=== PATIENT | male | born 1945 | race Caucasian/White ===

== ENCOUNTER 2017-11-14 20:15 | Emergency (ER) | payer BC, MEDICARE ==
[2017-11-14] MEDS ORDERED: Aspirin 81 MG Tab.Chew PO ONE (20:20)
[2017-11-14 21:03] VITALS: BP 141/79
--- NOTE | 2017-11-15 00:50 | ER ---
HISTORY OF PRESENT ILLNESS: A 72-year-old male here who comes in with his with complaints of chest pain and epigastric pain. It has been bothering him on and off for several days. The patient states that eating seems to make his symptoms worse. The pain has never been severe. He did try taking Tums today and the pain went away. The patient has been monitoring his blood pressure, and he has been getting elevated readings as well. He does have history of coronary artery disease. He has had 3 stents, the last one was about 2 years ago. The patient denies any falls or injuries. He has not been running a fever. He denies any GI symptoms such as nausea, vomiting, or diarrhea. OBJECTIVE: GENERAL APPEARANCE: The patient is awake and alert, in no obvious distress. VITAL SIGNS: Reviewed. Initial blood pressure is 213/95. He is afebrile. Pulse is 72, O2 sats 100%. HEENT: On physical exam; oral mucous membranes moist. Tonsils not enlarged or injected. Pharynx not inflamed. NECK: Supple. LUNGS: Clear. CARDIAC: Heart sounds distinct. S1, S2 present. Regular rate. No murmurs. ABDOMEN: Soft and nontender. SKIN: Warm and dry. The patient denies any pain at this time. Within 15 minutes, the blood pressure is rechecked with significantly better reading of 163/83. We checked it again 8 minutes later, and it was then 134/75. EKG was obtained and is normal sinus rhythm. LAB AND X-RAY: Chest x-ray is unremarkable. Labs include a CBC, CMP, PT/INR, and they are all normal. Troponin is also normal at 0.025. DIAGNOSIS: Gastritis. TREATMENT PLAN: The patient was given Nexium 40 mg p.o. here in the emergency room, and he was given samples to last him 6 more days. He is to take his dose of Nexium starting tomorrow before his evening meal, which is his biggest meal of the day. He is to refrain from greasy, spicy, or fatty foods, and I want him to follow up next week in the clinic with his primary care provider, Dr. Rizvi. Followup should be sooner of course if his symptoms reoccur or get worse. CRS/MODL /[id number]
--- NOTE | 2017-11-15 09:51 | CR ---
DATE OF SERVICE: 11/14/17 CLINICAL DATA: chest pain AP PORTABLE CHEST: Comparison is made to a prior exam dated 11/08/15. The patient has taken a poor inspiration. The heart size is within normal limits. The aorta is ectatic. The lungs are clear. No pneumothorax. No pleural effusions. No areas of consolidation. No evidence of acute intrathoracic disease. [id number] [facility]
== END 2017-11-14 21:50 | disposition home or self-care (01) ==
LOC: LB.ED 20:15
DX: K29.70 Gastritis, unspecified, without bleeding (principal); I25.10 Atherosclerotic heart disease of native coronary artery without angina pectoris; Z95.5 Presence of coronary angioplasty implant and graft
CPT/HCPCS: 36415; 71045; 80053; 84484; 85025; 85610; 93005; 99284; 99285-25

== ENCOUNTER 2018-10-16 10:25 | Day surgery (SDC) | payer BC, MEDICARE ==
[~2018-10-16 10:25] MED LIST: Metoclopramide 10 MG/2 ML SDV IV PRN; Sodium Chloride 0.9% 1,000 ML IV SCH
[2018-10-16] MEDS ORDERED: Atropine 0.4 MG/ML SDV ONE (12:15)
[2018-10-16] MEDS ORDERED: Midazolam 1 MG/ML 5 ML SDV ONE (12:15)
[2018-10-16] MEDS ORDERED: Propofol 1,000 MG/100 ML SDV ONE (12:15)
[2018-10-16 14:44] VITALS: BP 165/91
--- NOTE | 2018-10-16 18:07 | OR ---
DATE OF OPERATION: 10/16/2018 PREOPERATIVE DIAGNOSIS: History of colon polyps. POSTOPERATIVE DIAGNOSIS: History of colon polyps. PROCEDURE: Colonoscopy. ANESTHESIA: MAC. ESTIMATED BLOOD LOSS: None. COMPLICATIONS: None. INDICATION FOR THE PROCEDURE: The patient is a 73-year-old male who 4 years ago had a colonoscopy, was found to have a couple of polyps, which were removed. The patient denies any change in bowel habits since that time. He is here today for surveillance colonoscopy. DESCRIPTION OF PROCEDURE: Informed consent was obtained from the patient. The patient was taken to the operating room and placed on the table in left lateral decubitus position. Monitored anesthesia care was administered. A digital rectal exam was performed and was normal. Colonoscope then advanced through the anus directed toward the cecum. Cecum was reached and identified by appendiceal orifice and ileocecal valve. Colonoscope was then slowly withdrawn. No masses. No polyps. No areas of ischemia or inflammation. The patient did have moderate sigmoid diverticulosis. Retroflexion performed in the rectum was also otherwise unremarkable. Colonoscope then withdrawn. FINDINGS: Moderate sigmoid diverticulosis. RECOMMENDATIONS: We would recommend increased water and high-fiber diet for the diverticula. Due to personal history of colon polyps, we would recommend repeat surveillance colonoscopy in 5 years. VERNON /[id number]
== END 2018-10-16 14:10 | disposition home or self-care (01) ==
LOC: LB.SDS 10:25
PROVIDERS: ATTEND Surgery
DX: Z12.11 Encounter for screening for malignant neoplasm of colon (principal); K57.30 Diverticulosis of large intestine without perforation or abscess without bleeding; Z86.010 Personal history of colon polyps; Z98.890 Other specified postprocedural states
CPT/HCPCS: 45378; J7030; J0461; J2250; J2704

== ENCOUNTER 2021-08-10 09:35 | Emergency (ER) | payer MEDICARE, BC ==
--- NOTE | 2021-08-10 11:03 | EDM.PDOC ---
ED HPI GENERAL MEDICAL PROBLEM - General Stated Complaint: LUMP ON LEFT SHOULDER Time Seen by Provider: 08/10/21 10:20 Source of Information: Reports: Patient, Family, RN Notes Reviewed History Limitations: Reports: No Limitations - History of Present Illness INITIAL COMMENTS - FREE TEXT/NARRATIVE: This patient presents to the emergency department of left shoulder pain. He states that he has noticed some pain In an area with all "lump on it for the past couple of weeks. It does not ache however he is quite uncomfortable when it is touched. The area he indicates is painful is overlying the AC joint. He has not had any trauma or falls, however, he states he has been lifting weights with more regularity. He denies any numbness or tingling. Left Shoulder Pain Score (Numeric/FACES): 3 - Related Data Allergies Allergy/AdvReac Type Severity Reaction Status Date / Time No Known Allergies Allergy Verified 08/10/21 10:12 Home Meds: Home Meds Aspirin [Adult Low Dose Aspirin EC] 81 mg PO BEDTIME 07/06/13 [History] Levothyroxine Sodium [Synthroid] 75 mcg PO DAILY 07/06/13 [History] Metoprolol Succinate [Toprol XL] 50 mg PO DAILY 07/06/13 [History] Simvastatin 20 mg PO DAILY 07/06/13 [History] Clopidogrel Bisulfate [Clopidogrel] 75 mg PO DAILY 11/14/17 [History] Past Medical History HEENT History: Reports: Cataract, Impaired Vision Cardiovascular History: Reports: High Cholesterol, Hypertension, CO, Stents Other Cardiovascular History: 2010 in [place] Gastrointestinal History: Reports: GERD Endocrine/Metabolic History: Reports: Hypothyroidism - Infectious Disease History Infectious Disease History: Reports: Chicken Pox - Past Surgical History HEENT Surgical History: Reports: None Cardiovascular Surgical History: Reports: Coronary Artery Stent GI Surgical History: Reports: None Social & Family History - Family History Family Medical History: No Pertinent Family History - Caffeine Use Caffeine Use: Reports: None - Recreational Drug Use Recreational Drug Use: No Review of Systems - Review of Systems Review Of Systems: Comprehensive ROS is negative, except as noted in HPI. ED EXAM, GENERAL - Physical Exam Exam: See Below Exam Limited By: No Limitations General Appearance: Alert, No Apparent Distress (The ER) Eye Exam: Bilateral Eye: PERRL Ears: Normal External Exam Nose: Normal Inspection (Impression and no) Head: Atraumatic, Normocephalic Neck: Normal Inspection, Full Range of Motion Respiratory/Chest: No Respiratory Distress, No Accessory Muscle Use Back Exam: Normal Inspection Extremities: Normal Inspection, Normal Range of Motion, Other (Tenderness over left AC joint. No deformity, discoloration, swelling noted. Distal CMS intact.) Skin Exam: Warm, Dry, Intact Course - Vital Signs Last Recorded V/S: Last Vital Signs Temp 35.5 C L 08/10/21 10:14 Pulse 56 L 08/10/21 11:07 Resp 16 08/10/21 11:07 BP 180/89 H 08/10/21 11:07 Pulse Ox 96 08/10/21 11:07 - Re-Assessments/Exams Free Text/Narrative Re-Assessment/Exam: 08/11/21 06:29 This patient presents to the emergency department for evaluation of left shoulder pain. History and clinical findings are most consistent with a muscular low skeletal injury. X-ray obtained is negative for fracture or other acute bony abnormalities. Exam reveals no joint instability, neurovascular injury, no evidence of changes. History and exam are not consistent with a septic joint. Given his age and activity level this also could be some arthritis. Plan is for limited weight lifting, pain control with ibuprofen or Tylenol, ice and rest. I do not feel that opioid medications are required for his pain. He will follow-up with his primary care provider in 2 weeks if he is not better, sooner if he is worse in any way. Continued pain he will require mo re advanced imaging and care. Patient was stable at the time of discharge. Departure - Departure Time of Disposition: 11:00 Disposition: Home, Self-Care 01 Condition: Good Clinical Impression: Shoulder pain - Discharge Information *PRESCRIPTION DRUG MONITORING PROGRAM REVIEWED*: Not Applicable *COPY OF PRESCRIPTION DRUG MONITORING REPORT IN PATIENT TOM: Not Applicable Instructions: Shoulder Pain, [id number] Referrals: Kenn Rizvi MD [Primary Care Provider] - Forms: ED Department Discharge Sepsis Event Note (ED) - Evaluation Sepsis Screening Result: No Definite Risk
[2021-08-10 11:08] VITALS: BP 180/89; PULSE 56
--- NOTE | 2021-08-10 18:42 | CR ---
CLINICAL DATA: Pain. LEFT SHOULDER, 10 AUGUST 2021: No priors. There are mild osteoarthritic changes of the AC and glenohumeral joints. No acute abnormalities. No other significant findings. Job: [id number] MTDD
== END 2021-08-10 11:19 | disposition home or self-care (01) ==
LOC: LB.ED 09:35
DX: M25.512 Pain in left shoulder (principal); E78.00 Pure hypercholesterolemia, unspecified; I10 Essential (primary) hypertension; I25.2 Old myocardial infarction; E03.9 Hypothyroidism, unspecified; Z79.82 Long term (current) use of aspirin; Z79.02 Long term (current) use of antithrombotics/antiplatelets; Z79.899 Other long term (current) drug therapy
CPT/HCPCS: 73030-LT; 99283-25

== ENCOUNTER 2024-05-02 09:37 | Emergency (ER) | payer MEDICARE, BC ==
[2024-05-02 09:48] VITALS: BP 160/93; PULSE 60
[2024-05-02] MEDS: Amoxicillin/Clavulanate K 875-125 MG Tab PO ONE (10:10)
[2024-05-02] MEDS: Diphtheria,Pertussis(Acell),Tetanus Vaccine 0.5 ML Syringe IM ONE (10:43)
[2024-05-02] MEDS: Bacitracin Oint 1 GM U/D Packet TOP ONE (10:44)
[2024-05-02] MEDS ORDERED: Rabies Immune Globulin/PF (HyperRAB) 300 UNIT/ML 5 ML SDV IM ONE (11:11)
[2024-05-02] MEDS: RABIES IMMUNE GLOBULIN IM ONE (11:20)
[2024-05-02] MEDS: [UNRECOGNIZED DRUG - OTHER] IM ONE (11:20)
[2024-05-02] MEDS ORDERED: Amoxicillin/Clavulanate K 875-125 MG Tab ONE (11:30)
[2024-05-02] MEDS: Rabies Vaccine (Avian) 2.5 Unit Inj Kit IM ONE (11:48)
== END 2024-05-02 11:42 | disposition home or self-care (01) ==
LOC: LB.ED 09:37
DX: S61.551A Open bite of right wrist, initial encounter (principal); I10 Essential (primary) hypertension; Z23 Encounter for immunization; K21.9 Gastro-esophageal reflux disease without esophagitis; E03.9 Hypothyroidism, unspecified; Z87.891 Personal history of nicotine dependence; Z79.899 Other long term (current) drug therapy; Z79.82 Long term (current) use of aspirin; W54.0XXA Bitten by dog, initial encounter
CPT/HCPCS: 90375; 90471; 90675; 90715; 96372; 99283; A9270

== ENCOUNTER 2024-07-05 08:50 | Emergency (ER) | payer MEDICARE, BC ==
[2024-07-05 09:00] VITALS: PULSE 63
[2024-07-05] MEDS ORDERED: Amoxicillin 500 MG Cap ONE (09:00)
[2024-07-05 10:46] VITALS: BP 199/92
== END 2024-07-05 09:10 | disposition home or self-care (01) ==
LOC: LB.ED 08:50
DX: K08.89 Other specified disorders of teeth and supporting structures (principal); I10 Essential (primary) hypertension; K21.9 Gastro-esophageal reflux disease without esophagitis; E03.9 Hypothyroidism, unspecified; Z95.5 Presence of coronary angioplasty implant and graft; Z79.899 Other long term (current) drug therapy; Z79.82 Long term (current) use of aspirin
CPT/HCPCS: 99282; A9270-GY

== ENCOUNTER 2024-07-05 18:55 | Emergency (ER) | payer MEDICARE, BC ==
[2024-07-05] MEDS: Isosorbide Mononitrate 30 MG Tab.ER PO ONE (19:45)
[2024-07-05] MEDS: Labetalol 100 MG/20 ML MDV IVPUSH ONE ×2 (20:50→21:10)
[2024-07-05] MEDS: Labetalol 100 MG/20 ML MDV ONE (20:52)
[2024-07-05 21:15] LABS: HEMATOCRIT 49.8 % (40.0-54.0); HEMOGLOBIN 17.8 g/dL (13.0-18.0); MEAN CORPUSCULAR HEMOGLOBIN 32.6 pg (27.0-32.0); MEAN CORPUSCULAR HGB CONC 35.7 g/dL (31.0-35.0); MEAN PLATELET VOLUME 11.1 fL (6.0-10.0); RED BLOOD CELL COUNT 5.46 M/uL (4.50-6.50); RED CELL DISTRIBUTION WIDTH 13.2 % (11.0-16.0); WHITE BLOOD CELL COUNT,WBC 10.1 K/uL (4.0-11.0)
[2024-07-05 21:27] LABS: ANION GAP 14.1 mmol/L (5.0-15.0); BUN/CREATININE RATIO 12.8 (6-25); CALCIUM 8.8 mg/dL (8.5-10.1); CARBON DIOXIDE,CO2 27.9 mmol/L (21.0-32.0); CREATININE 0.94 mg/dL (0.70-1.30); EST CRCL DRUG DOSING (CG) 63.67 mL/min
[2024-07-05] MEDS: hydrALAZINE 20 MG/ML SDV IVPUSH SCH (21:54)
[2024-07-05] MEDS: hydrALAZINE 20 MG/ML SDV ONE (21:54)
[2024-07-05] MEDS: hydrALAZINE 20 MG/ML SDV IVPUSH PRN (22:37)
[2024-07-05] MEDS: Heparin Sodium 5,000 Units/ML Vial IVPUSH ONE (22:47)
[2024-07-05] MEDS: Heparin Sodium/D5W 25,000 UNITS/500 ML BAG IV SCH (22:55)
[2024-07-06] MEDS ORDERED: Metoprolol Succinate 50 MG Tab.ER PO SCH (08:15)
[2024-07-06] MEDS ORDERED: Tamsulosin 0.4 MG Cap.ER PO SCH (08:15)
[2024-07-06] MEDS ORDERED: Levothyroxine 75 MCG Tab PO SCH (08:15)
[2024-07-06] MEDS: Levothyroxine 75 MCG Tab PO SCH (08:38)
[2024-07-06] MEDS: Metoprolol Succinate 50 MG Tab.ER PO SCH (08:38)
[2024-07-06] MEDS: atorvaSTATin 40 MG Tab PO SCH (08:39)
[2024-07-06] MEDS: Tamsulosin 0.4 MG Cap.ER PO SCH (08:39)
[2024-07-06] MEDS: ISOSORBIDE MONO 60 MG PO SCH (08:39)
[2024-07-06] MEDS: Morphine 2 MG/ML SYRINGE IVPUSH PRN (08:56)
[2024-07-06] MEDS: Heparin Sodium 5,000 Units/ML Vial IVPUSH ONE ×2 (09:19→09:34)
[2024-07-06] MEDS: Aspirin 81 MG Tab.Chew PO ONE (09:51)
[2024-07-06] MEDS: Aspirin 81 MG Tab.Chew ONE (10:09)
[2024-07-06] MEDS: Amoxicillin 500 MG Cap PO SCH (13:21)
[2024-07-06 14:14] VITALS: BP 138/70; PULSE 66
[2024-07-06] MEDS ORDERED: atorvaSTATin 20 MG Tab PO SCH (20:00)
[2024-07-06] MEDS ORDERED: Isosorbide Mononitrate 60 MG Tab.ER PO SCH (20:00)
[2024-07-07] MEDS ORDERED: Aspirin 81 MG Tab.EC PO SCH (08:00)
== END 2024-07-06 14:12 ==
LOC: LB.ED 18:55 → LB.MS 22:00 → UNDOADMOB 22:00 → LB.MS 22:15
PROVIDERS: ADMIT Surgery; ATTEND Surgery
DX: I16.0 Hypertensive urgency (principal); R07.89 Other chest pain; R79.89 Other specified abnormal findings of blood chemistry; I10 Essential (primary) hypertension; E03.9 Hypothyroidism, unspecified; Z95.5 Presence of coronary angioplasty implant and graft; Z79.82 Long term (current) use of aspirin; Z79.890 Hormone replacement therapy; Z79.899 Other long term (current) drug therapy
CPT/HCPCS: 36415; 80048; 84484; 85027; 85730; 93005; 96365; 96366; 96374; 96375; 96376; 99222; 99239; 99284-25; A9270-GY; G0378; J0360; J1644; J1921; J2270

== ENCOUNTER 2025-07-15 10:37 | Day surgery (SDC) | payer MEDICARE, BC ==
[2025-07-15] MEDS ORDERED: Propofol 200 MG/20 ML SDV ONE (12:00)
[2025-07-15 13:24] VITALS: BP 116/68; PULSE 49
== END 2025-07-15 13:29 | disposition home or self-care (01) ==
LOC: LB.SDS 10:37
PROVIDERS: ATTEND Surgery
DX: Z12.11 Encounter for screening for malignant neoplasm of colon (principal); K57.30 Diverticulosis of large intestine without perforation or abscess without bleeding; E78.5 Hyperlipidemia, unspecified; I10 Essential (primary) hypertension; E03.9 Hypothyroidism, unspecified; I25.10 Atherosclerotic heart disease of native coronary artery without angina pectoris; Z88.5 Allergy status to narcotic agent; Z79.82 Long term (current) use of aspirin; Z79.899 Other long term (current) drug therapy; Z79.890 Hormone replacement therapy; Z86.0100 Personal history of colon polyps, unspecified
CPT/HCPCS: J2704; J7030